=== PATIENT | female | born 1960 | race Caucasian/White ===

== ENCOUNTER → 2024-11-30 08:16 | Outpatient (REF) | payer OTHER, SELFPAY | LOC: HWRAD 08:16 | PROVIDERS: ATTENDING PHYSICIAN Student in an Organized Health Care Education/Training Program; FAMILY PHYSICIAN Nurse Practitioner Adult Health | DX: M25.271 Flail joint, right ankle and foot (principal) | CPT/HCPCS: 73700 ==

== ENCOUNTER 2025-03-14 06:54 | Day surgery (SDC) | payer OTHER, SELFPAY ==
[2025-03-02 06:20] VITALS: BMI 27.9
[2025-03-02 08:53] LABS: Hematocrit 39.5 % (37.0-47.0); Hemoglobin 13.3 g/dL (12.0-16.0); Mean Corp Hgb Conc. 33.7 g/dL (33.0-37.0); Mean Corpuscular Volume 93.2 fL (81.0-99.0); Nucleated Red Blood Cells % 0 %; Platelet Count 232 10^3/uL (130-400); Red Cell Dist. Width 12.6 % (11.5-14.5)
[2025-03-02 09:22] LABS: Blood Urea Nitrogen 25 mg/dl (7-17); Calcium 9.6 mg/dl (8.4-10.2); Carbon Dioxide 28 mmol/L (22-30); Chloride 103 mmol/L (98-107); Estimated Creatinine Clearance 57 ml/min; Glucose 91 mg/dl (70-99); Potassium 4.3 mmol/L (3.5-5.1); Sodium 137 mmol/L (135-145); eGFR > 60.00
[2025-03-14] VITALS (10 sets, daily range): BP systolic 103–136; BP diastolic 59–79; BMI 27.9; BMI 28.6
[2025-03-14] MEDS: TYLENOL 1000 MG PO (11:45)
[2025-03-14] MEDS: CELEBREX 200 MG PO (11:45)
[2025-03-14] MEDS: NORMOSOL-R/PLASMALYTE-A 1000 IV (11:53)
--- NOTE | 2025-03-14 17:29 | W.PN.UPDATE ---
Update Note
Progress Note Update
64F s/p R TAR w/ prophylactic medial malleolus pinning
- would appreciate admission to hospitalist service
- Strict NWB RLE
- sx ppx IV abx 24 hrs (Ancef), not a barrier to DC
- PT/OT
- postop analgesia
-- preop regional block
- will reassess on AM rounds
--- NOTE | 2025-03-14 17:46 | HPS.HSE ---
Family Physician
-
Family Physician: Meghna Pichardo
Chief Complaint
-
Post right ankle surgery
History of Present Illness
Patient is a 64-year-old female past medical history of hypertension, benign breast mass s/p biopsy, history of allergic rhinitis, history of pericardial effusion, pulmonary nodule was brought in to the hospital for an elective right ankle
arthroplasty. Postoperative patient was requested to be admitted to hospital for pain control and physical therapy evaluation by surgical team. Patient was seen in postoperative unit and was resting comfortably. Patient was feeling some nausea
from anesthesia/pain medication although not voicing any other complaints of chest pain/shortness of breath/palpitation.
Medical History
Past Medical History
Past Medical History: Reports Other
Additional Past Medical History:
hypertension, benign breast mass s/p biopsy, history of allergic rhinitis, history of pericardial effusion, pulmonary nodule
Past Surgical History: Reports Other
Social History
Tobacco: Non-smoker
Alcohol: Occasional
Drug: None
Living: With Family
Family History
Family History: Not pertinent
Allergies / Home Medications
Allergies reflects when Allergies were last updated in [employer].
Home Medications with original date entered in [employer]
Allergy/Medication List:
Allergies
Allergy/AdvReac Type Severity Reaction Status Date / Time
No Known Allergies Allergy Verified 03/14/25 11:39
Home Medications
benazepril 20 mg tablet 20 mg PO DAILY 03/07/25
calcium carbonate (Calcium 600) 600 mg PO DAILY 03/07/25
cholecalciferol (vitamin D3) 25 mcg (1,000 unit) capsule (Vitamin D3) 25 mcg PO DAILY 03/07/25
coQ10 (ubiquinol) 100 mg capsule 100 mg PO QPM 03/07/25
cyanocobalamin (vitamin B-12) 500 mcg tablet (Vitamin B-12) 500 mcg PO DAILY 03/07/25
multivitamin with minerals-folic acid 200 mcg chewable tablet (Multivitamin Gummies) 1 tab PO DAILY 03/07/25
pyridoxine (vitamin B6) 100 mg tablet (Vitamin B-6) 100 mg PO DAILY 03/07/25
tamoxifen 10 mg tablet 10 mg PO QPM 03/07/25
zinc acetate 50 mg (zinc) capsule 50 mg PO DAILY 03/07/25
Review of Systems
-
A 12 point ROS was completed and negative except as noted: Yes
Physical Exam
Vital Signs
Vital Signs
Temp Pulse Resp BP Pulse Ox
99.0 F 64 15 119/71 97
03/14/25 16:27 03/14/25 17:15 03/14/25 17:15 03/14/25 17:11 03/14/25 17:15
Physical Exam
General: No Apparent Distress
HEENT: Atraumatic
Respiratory: Clear
Cardiac: S1/S2 and Regular Rhythm; No Murmur or Rub
GI: Soft, Non Tender, Non Distended and Normal Bowel Sounds; No Organomegaly
Rectal: Deferred by Provider
Musculoskeletal: No Edema and Other (Right lower extremity mitchell wrapping)
Skin: No Rash
Neuro: Awake, Alert and Nonfocal/grossly intact
Laboratory Results
-
03/02/25 06:26
03/02/25 06:26
Impression/Plan
-
1. Status post right total ankle arthroplasty
-Patient is currently postop day 0
-Complaining some nausea from medication provided during surgery
-Maintain patient on oral oxycodone and IV Dilaudid for pain
-Patient is nonweightbearing for right lower extremity
-IV antibiotic/Ancef has been ordered as part of surgery protocol
-Patient to be admitted to surgical floor for overnight monitoring
-Patient to be evaluated by physical therapy in the morning
2. Postoperative nausea
-As needed Zofran ordered for patient to use
-Maintain on regular diet
3. Essential hypertension
-Continue home dose of benazepril with holding parameter
4. History of breast mass s/p resection
-Patient on tamoxifen, which will be continued
-Denies of history of any VTE event
DVT prophylaxis -mechanical dvt ppx contraindicated due to ankle procedure. Chemical prophylaxis contraindicated due to bleeding risk
Full code
Total time spent : 77 mins
I personally saw and examined the patient.
I have reviewed all diagnostic interpretations and treatment plans as written.
Time includes patient management by me, time spent at the patients bedside, time to review lab and imaging results, discussing patient care, documentation in the medical record, and time spent with the family or caregiver and discussing care plan
with RN/Consultants.
[2025-03-14] MEDS: ANCEF 10 IV (20:48)
[2025-03-14] MEDS: NOLVADEX 10 MG PO (20:48)
[2025-03-14] MEDS: NEURONTIN 300 MG PO (21:18)
[2025-03-15] MEDS: ANCEF 10 IV ×2 (03:31→12:08)
[2025-03-15 03:36] VITALS: BP 111/65
[2025-03-15 07:54] LABS: Hematocrit 36.9 % (37.0-47.0); Hemoglobin 12.1 g/dL (12.0-16.0); Mean Corp Hgb Conc. 32.8 g/dL (33.0-37.0); Mean Corpuscular Volume 93.7 fL (81.0-99.0); Platelet Count 254 10^3/uL (130-400); Red Cell Dist. Width 12.5 % (11.5-14.5)
[2025-03-15 08:00] VITALS: BP 124/72
[2025-03-15 08:29] LABS: Blood Urea Nitrogen 16 mg/dl (7-17); Calcium 9.4 mg/dl (8.4-10.2); Carbon Dioxide 24 mmol/L (22-30); Chloride 108 mmol/L (98-107); Estimated Creatinine Clearance 65 ml/min; Glucose 101 mg/dl (70-99); Potassium 4.3 mmol/L (3.5-5.1); Sodium 138 mmol/L (135-145); eGFR > 60.00
[2025-03-15] MEDS: OSCAL 500 + D 500 MG PO (08:32)
[2025-03-15] MEDS: ZESTRIL 20 MG PO (08:32)
[2025-03-15] MEDS: NEURONTIN 300 MG PO (08:32)
[2025-03-15 10:01] VITALS: BP 125/78; PULSE 59; O2SAT 98
[2025-03-15 10:02] VITALS: BP 125/78; PULSE 63; O2SAT 98
[2025-03-15 11:00] VITALS: BP 116/72
[2025-03-15] MEDS: TYLENOL 500 MG PO (11:03)
--- NOTE | 2025-03-15 11:32 | CM ---
Met with patient at bedside
Pharmacy verified: [facility] @ [address] [place] [address]
Lives alone; Rancher; 11 steps to enter; railing present; bath has small stall shower; shower chair available
PLOF: reported she was independent w/ ambulation, stairs, and ADLs; Worked time study statistician; NO DME
NO SNF or Home Health utilization history
One of her sisters will transport home
Plan: Discharge to home w/ assistance from Sister; no needs
--- NOTE | 2025-03-15 13:18 | W.DCSUMMARY ---
Discharge Summary
Discharge Data
Date of Admission: 03/14/25
Date of Discharge: 03/15/25
-
Pending Results: No
Hospital Course
Discharging Physician : Dr Anjel Torre
Disposition : Home with VN care
Primary care physician : Dr Kalie Pichardo
Principal Discharge diagnosis :
Right ankle total arthroplasty
Chronic Discharge diagnosis :
Essential hypertension
History of breast mass s/p resection
History of pericardial effusion
History of pulmonary nodules
Physical examination:
GEN: aox3
HEENT: moist mucus membrane,
Chest: Clear to auscultation
Heart: N s1/s2, RRR, no murmur
Abd: N BS, soft, nontender, nondistended,
Neuro: No motor or sensory deficits
Ext: No cyanosis, Clubbing, edema
Hospital Course :
Patient is a 64-year-old female with no mentioned past medical history was brought in for elective right ankle total arthroplasty. Surgery was uneventful and patient was admitted to medical floor for overnight monitoring for pain and next day
physical therapy evaluation. Patient was deemed appropriate for home level discharge. Patient was provided prescription for pain medication with plan for patient to follow-up with surgery in the office postdischarge.
Important imaging findings :
None
Procedure findings :
None
Discharge Plan
-
Patient Disposition: Home with Home Care
Discharge Diagnosis/Procedures: Right ankle surg
Condition: Fair
Diet: Regular
Activity: As tolerated
Driving Restrictions: No driving until cleared by primary surgeon
Bathing Restrictions: OK to Shower
Referrals:
Meghna Pichardo NP [Family Provider] - in one week
Prescriptions:
New
tramadol 50 mg tablet
25 mg PO Q8H PRN (Reason: Mod pain) Qty: 10 0RF
Rx Instructions:
Can take 1 tablet for severe pain
acetaminophen 500 mg tablet
1,000 mg PO Q8H Qty: 30 0RF
Continued
zinc acetate 50 mg (zinc) Capsule
50 mg PO DAILY
calcium carbonate [Calcium 600] 600 mg calcium (1,500 mg) Tablet
600 mg PO DAILY
cyanocobalamin (vitamin B-12) [Vitamin B-12] 500 mcg Tablet
500 mcg PO DAILY
tamoxifen 10 mg Tablet
10 mg PO QPM
benazepril 20 mg Tablet
20 mg PO DAILY
pyridoxine (vitamin B6) [Vitamin B-6] 100 mg Tablet
100 mg PO DAILY
cholecalciferol (vitamin D3) [Vitamin D3] 25 mcg (1,000 unit) Capsule
25 mcg PO DAILY
multivit with min-folic acid [Multivitamin Gummies] 200 mcg Tablet,Chewable
1 tab PO DAILY
coQ10 (ubiquinol) 100 mg Capsule
100 mg PO QPM
Discharge Orders:
Discharge Patient (As Directed); Ordered 03/15/25
Ordered By: Anjel Torre
Discharge Date and Time
Print Language: [place]
--- NOTE | 2025-03-15 14:23 | W.PN.SURGUPD ---
Surgical Update
Surgical Update
Patient is s/p right TAR 03/14/2025
-Patient recovering well at bedside, pain well controlled, nerve block still active
-WBC noted to be elevated today, likely post surgical there are no signs or symptoms of infection
-PT/OT for NWB to RLE
-Follow up at [facility] in 2 weeks
--- NOTE | 2025-03-15 14:24 | PTCARENOTE ---
Patient discharged home, transported by sister. This RN removed patient's IV, vitals taken by tech within 4 hours stable. This RN reviewed discharge instructions with patient and patient's sister at bedside and both verbalized understanding. Patient
dressed and gathered belongings in room independently. Patient taken down to sister's car at [facility] via staff escort and wheelchair.
--- NOTE | 2025-03-16 09:24 | OR.RPT ---
Operative Report
Operative Report
Operative Report
Patient Name: Brittany Hutchins

Date of Surgery: 03/14/2025
Surgeon: Mynor Becker DPM
Web Knitter: Mynor Arroyo DPM
Pre-operative diagnosis:
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
Post-operative diagnosis:
Same as preoperative
Procedure:
Right total ankle replacement (CPT 98086)
Prophylactic medial malleolus pinning (CPT 40145)
Anesthesia:
General with regional block
Hemostasis:
Pneumatic thigh tourniquet which remained inflated to 300mmHg for 120 minutes
Estimated blood loss:
Minimal
Specimens:
None
Implants:
Renita Infinity total ankle replacement system:
� Tibial component size 4
� Talar component size 3
� Polyethylene insert size 9
Medial malleolus fixation: 4.0 mm � 50 mm Renita Asnis screw
Complications:
None
Indications for Procedure:
The patient is a 64 year old female who presented with long-standing severe right ankle arthritis that failed conservative management including bracing, activity modification, NSAIDs, and injections. The talus demonstrated severe valgus malalignment
within the ankle mortise, contributing to pain, instability, and progressive deformity. Given the severity of degenerative changes and deformity, total ankle arthroplasty was indicated to restore alignment, reduce pain, and improve mobility. Risks,
benefits, and alternatives of the procedure were discussed and patient consented for surgical intervention.
Description of Procedure:
The patient was brought to the operating room and placed supine on the operating table. After induction of general anesthesia with a regional block, a pneumatic thigh tourniquet was applied and the right lower extremity was prepped and draped in the
usual sterile fashion.
First, two 0.062' K-wires were placed across the medial malleolus as prophylactic pinning in the case of medial malleolus fracture. Fluoroscopy was utilized to confirm excellent position of these wires.
Next, a standard anterior approach to the ankle was performed. A ~12cm skin incision was made in between the tibialis anterior and EHL tendons. Blunt soft tissue dissection was carried down to the extensor retinaculum, which was incised, and the
neurovascular bundle was carefully protected throughout the procedure. Dissection was then carefully carried down to the ankle joint, and the tibia/talus were adequately exposed.
Attention was then directed to the tibial preparation. Customized cutting guides from the [employer] system were applied, and the distal tibia was resected in the appropriate orientation to correct valgus alignment and accommodate the size 4
tibial component. The talus was subsequently prepared, with resection and contouring performed to accept the size 3 talar component. Trial components were inserted, confirming excellent alignment and balance. Next, the medial and lateral gutters
were thoroughly cleared of all debris and impinging tissue.
Cement was then prepared and utilized for component implantation. The ankle joint was thoroughly irrigated with pulse lavage. Final implants were inserted in accordance with restaurant crew person protocol: the tibial component size 4, talar component size 3,
and a size 9 polyethylene insert. Following insertion, the ankle demonstrated excellent range of motion and stability. Given the improved dorsiflexion and overall mobility, a gastrocnemius recession, and medial/lateral ligamentous stabilization was
deemed unnecessary.
A 4.0 mm � 50 mm Renita Asnis screw was placed over one of the medial malleolus pins to provide definitive prophylactic stabilization of the medial malleolus. No fracture was noted. Fluoroscopy was utilized to confirm excellent position of the
important and the ankle mortise.
The wound was thoroughly irrigated. Layered closure was performed using 2-0 vicryl for deep layers, 3-0 vicryl for subcutaneous tissue, and 3-0 nylon for skin. The tourniquet was deflated and excellent capillary refill was noted to all digits. A
sterile dressing and well-padded splint were applied.
The patient tolerated the procedure well and was transferred to recovery in stable condition.
Postoperative Plan:
� Patient will be admitted for pain control, physical therapy, and monitoring
� Non�weight bearing to the right lower extremity in a splint
� Elevation and icing to reduce swelling
� Continue prophylactic antibiotics during admission
� Follow-up in 10�14 days for wound check and suture removal
� Transition to a boot and initiation of progressive weight bearing per protocol at subsequent visits
== END 2025-03-15 14:31 | disposition home health service (06) ==
LOC: SDS 06:54
PROVIDERS: Student in an Organized Health Care Education/Training Program; ATTENDING PHYSICIAN Hospitalist; FAMILY PHYSICIAN Nurse Practitioner Adult Health; OTHER PHYSICIAN Internal Medicine Clinical Cardiac Electrophysiology
DX: M19.071 Primary osteoarthritis, right ankle and foot (principal); I10 Essential (primary) hypertension; Z79.899 Other long term (current) drug therapy; R11.0 Nausea; M25.371 Other instability, right ankle
CPT/HCPCS: 27702; 73610; 76000; 80048; 85025; 85027; 93005; 97116; 97162; 97167; 97535; C1713; C1763; C1776